=== PATIENT | male | born 1980 ===

== ENCOUNTER 2020-01-06 07:27 | Outpatient (CLI) | payer OTHER ==
[2020-01-06 08:10] LABS: Hemoglobin 15.1 gm/dl (11.8-15.2)
[2020-01-06 08:16] LABS: Hematocrit 44.5 % (35.5-45.6); Mean Corpuscular HGB Conc 34 % (32-34); Mean Corpuscular Volume 88 fl (84-94); Platelet Count 149 K/mm3 (140-440); Red Blood Count 5.07 M/mm3 (3.65-5.03); Red Cell Distribution Width 14.1 % (13.2-15.2)
[2020-01-06 08:25] LABS: Alanine Aminotransferase 92 units/L (7-56); Albumin 4.2 g/dL (3.9-5); Blood Urea Nitrogen 8 mg/dL (9-20); Calcium 9.3 mg/dL (8.4-10.2); Hemolysis Index 4
[2020-01-06 08:27] LABS: BUN/Creatinine Ratio 16
[2020-01-06 08:53] LABS: Erythrocyte Sedimentation Rate 5 mm/Hr (0-20)
--- NOTE | 2020-01-06 08:54 | XRay Report ---
CHEST 2 VIEWS INDICATION / CLINICAL INFORMATION: PULMONARY EMBOLISM. COMPARISON: 10/23/2019 FINDINGS: SUPPORT DEVICES: None. HEART / MEDIASTINUM: Stable. LUNGS / PLEURA: Interval improvement of previously noted diffuse scattered opacities throughout bilat eral lung luis. No pneumothorax or pleural effusion. ADDITIONAL FINDINGS: No significant additional findings. IMPRESSION: 1. Interval improvement of previously noted scattered opacities throughout bilateral lung luis. Signer Name: Thee Torres MD Signed: 01/06/2020 8:50 AM Workstation Name: [id number]
[2020-01-06 11:27] LABS: ABG Base Excess -1.5 mmol/L (-2.0-3.0); ABG HCO3 23.6 mmol/L (20.0-26.0); ABG Methemoglobin 0.6 % (0.0-1.5); ABG Oxygen Saturation 96.9 % (95.0-99.0); ABG PCO2 41.2 mm Hg; ABG PH 7.376 pH Units (7.350-7.450); ABG PO2 89.4 mm Hg (80.0-90.0)
== END 2020-01-06 07:28 | disposition home or self-care (01) ==
LOC: LAB 07:27
PROVIDERS: ATTEND Internal Medicine
DX: Z09 Encounter for follow-up examination after completed treatment for conditions other than malignant neoplasm (principal); I26.99 Other pulmonary embolism without acute cor pulmonale
CPT/HCPCS: 36415; 36600; 71046; 80053; 82728; 82803; 83615; 85027; 85379; 85652; 86140